=== PATIENT | female | born 1970 | race Caucasian/White ===

== ENCOUNTER → 2017-05-09 | Emergency (ER) | payer MEDICAID ==
[~2017-05-09] MED LIST: ALBU8.5H8 IH; IBUP-1986 PO
== END | disposition left against medical advice (07) ==
LOC: ER 14:52
DX: M79.643 Pain in unspecified hand (principal); Z53.21 Procedure and treatment not carried out due to patient leaving prior to being seen by health care provider

== ENCOUNTER → 2017-12-26 | Emergency (ER) | payer MEDICAID ==
[~2017-12-26] VITALS: Ht 162.6 cm; Wt 75.0 kg
[~2017-12-26] MED LIST changes: +ALBU18HF2 INH; +ATOR80TA PO; +ESCI5TAB PO; +GABA-532 PO; +GLIP5TAB13 PO; +INSU100I31; +LIRA0.6P2 SQ; +MESSAGE TO PHARMACY PO ONE; +METF500T PO; +PALI117D IM; +PALIPERIDONE PALMITATE IM SCH; +TIOT4MIS5 IH; +TRAZ-219 PO; +albuterol 2.5 MG/3 ML nebule NEB PRN; +dextrose 50%-water 50ml dispensing syringe IV PRN; +dextrose ORAL solution 15 GM/59 ML bottle PO PRN; +glipizide 5mg tablet PO SCH; +glucagon, human recombinant 1mg kit SUBCUT PRN; +metFORMIN 500mg tablet PO SCH; +paliperidone palmitate inj 234 MG/1.5 ML SYRINGE IM SCH
[2017-12-26 17:02] LABS: BASOPHILS % (AUTO) 0.4 % (0-1); EOSINOPHILS # (AUTO) 0.1 X10'3 (0-0.9); EOSINOPHILS % (AUTO) 1.7 % (0-6); HEMOGLOBIN 14.2 g/dl (12.0-16.0); LYMPHOCYTES # (AUTO) 2.3 X10'3 (1.1-4.8); LYMPHOCYTES % (AUTO) 42.7 % (21-51); MEAN CORPUSCULAR HGB CONC 33.9 % (33.0-36.5); MEAN CORPUSCULAR VOLUME 88.6 FL (78-98); MEAN PLATELET VOLUME 7.3 FL (7.4-10.4); MONOCYTES # (AUTO) 0.6 X10'3 (0-0.9); MONOCYTES % (AUTO) 10.4 % (2-12); NEUTROPHILS # (AUTO) 2.4 X10'3 (1.8-7.7); NEUTROPHILS % (AUTO) 44.8 % (42-75); PLATELET COUNT 255 X10'3 (140-440); RED BLOOD COUNT 4.74 X10'6 (4.20-5.60); RED CELL DISTRIBUTION WIDTH 13.9 % (11.5-14.5); WHITE BLOOD COUNT 5.3 X10'3 (4.5-11.0)
[2017-12-26 17:11] LABS: URINE HCG NEGATIVE (NEG)
[2017-12-26 17:14] LABS: ALANINE AMINOTRANSFERASE 70 U/L (12-78); ALBUMIN 3.7 G/DL (3.4-5.0); ALBUMIN/GLOBULIN RATIO 0.9 (1.1-1.5); ALKALINE PHOSPHATASE 86 IU/L (46-116); ANION GAP 10 (8-16); ASPARTATE AMINO TRANSFERASE 30 U/L (10-37); BILIRUBIN,TOTAL 0.2 MG/DL (0.1-1.0); BLOOD UREA NITROGEN 11 MG/DL (7-18); BUN/CREATININE RATIO 15.9 (6.6-38.0); CALCIUM 9.3 MG/DL (8.5-10.1); CHLORIDE 99 MMOL/L (99-107); CREATININE 0.69 MG/DL (0.40-0.90); ETHANOL < 0.010 GM/DL (0.0-0.010); GLUCOSE 134 MG/DL (70-104); SODIUM 139 MMOL/L (135-145); TOTAL CARBON DIOXIDE 30.2 MMOL/L (24-32); TOTAL PROTEIN 7.8 G/DL (6.4-8.2); eGFR > 90 ML/MIN
[2017-12-26 17:21] LABS: URINE AMPHETAMINE SCREEN NEGATIVE (Neg); URINE BARBITUATE SCREEN NEGATIVE (Neg); URINE BENZODIAZEPINES SCREEN NEGATIVE (Neg); URINE CANNABINOID SCREEN POSITIVE (Neg); URINE COCAINE SCREEN NEGATIVE (Neg); URINE METHADONE SCREEN NEGATIVE (Neg); URINE OPIATE SCREEN NEGATIVE (Neg); URINE PHENCYCLIDINE SCREEN NEGATIVE (Neg)
[2017-12-26] MEDS: ipratropium 0.5 MG/2.5ML nebule IH SCH (21:03)
[2017-12-26] MEDS: insulin glargine (Lantus) pen - multi-dose SQ SCH (21:55)
[2017-12-26] MEDS: gabapentin 300mg capsule PO SCH (21:58)
[2017-12-26] MEDS: traZODone 50mg tablet PO SCH (21:58)
[2017-12-27] MEDS: ipratropium 0.5 MG/2.5ML nebule IH SCH ×4 (04:22→21:18)
[2017-12-27] MEDS: Liraglutide (Victoza) 1.2 MG SQ SCH (08:00)
[2017-12-27] MEDS: atorvastatin 20mg tablet PO SCH (08:45)
[2017-12-27] MEDS: gabapentin 300mg capsule PO SCH ×3 (08:45→21:07)
[2017-12-27] MEDS: citalopram 20mg tablet PO SCH (08:45)
[2017-12-27] MEDS: metFORMIN 500mg tablet PO SCH (12:41)
[2017-12-27] MEDS: nicotine 21mg patch - 24 hr TD SCH (14:00)
[2017-12-27] MEDS: insulin Lispro (HumaLOG) vial - multi-dose SQ SCH (14:02)
[2017-12-27 20:37] LABS: CLARITY,URINE CLEAR (Clear); COLOR,URINE YELLOW (Yellow); GLUCOSE, URINE NEGATIVE (Neg); KETONES,URINE NEGATIVE (Neg); LEUKOCYTE ESTERASE ,URINE NEGATIVE (Neg); NITRITES, URINE NEGATIVE (Neg); OCCULT BLOOD,URINE NEGATIVE (Neg); PH,URINE 5.5 (4.8-8.0); PROTEIN,URINE NEGATIVE (Neg); UROBILINOGEN,URINE 0.2 E.U/dL (0.2-1.0)
[2017-12-27 20:42] LABS: UA COLLECTION TYPE CLN CATCH MIDSTREAM
[2017-12-27] MEDS: traZODone 50mg tablet PO SCH (21:08)
[2017-12-27] MEDS: insulin glargine (Lantus) pen - multi-dose SQ SCH (21:12)
[2017-12-28] MEDS: ipratropium 0.5 MG/2.5ML nebule IH SCH ×3 (02:00→13:57)
[2017-12-28 05:30] VITALS: BP 120/68
[2017-12-28] MEDS: Liraglutide (Victoza) 1.2 MG SQ SCH ×2 (08:00→13:33)
[2017-12-28] MEDS: gabapentin 300mg capsule PO SCH ×2 (08:55→12:46)
[2017-12-28] MEDS: citalopram 20mg tablet PO SCH (08:55)
[2017-12-28] MEDS: atorvastatin 20mg tablet PO SCH (08:56)
[2017-12-28] MEDS: nicotine 21mg patch - 24 hr TD SCH (08:56)
[2017-12-28] MEDS: insulin Lispro (HumaLOG) vial - multi-dose SQ SCH ×2 (09:18→13:25)
[2017-12-28] MEDS: metFORMIN 500mg tablet PO SCH (13:26)
== END | disposition home or self-care (01) ==
LOC: ER 16:35
DX: R45.851 Suicidal ideations (principal); E11.42 Type 2 diabetes mellitus with diabetic polyneuropathy; E78.00 Pure hypercholesterolemia, unspecified; G89.29 Other chronic pain; F31.9 Bipolar disorder, unspecified; F20.9 Schizophrenia, unspecified; Z56.0 Unemployment, unspecified; Z98.890 Other specified postprocedural states; Z88.0 Allergy status to penicillin; Z88.6 Allergy status to analgesic agent; Z79.899 Other long term (current) drug therapy; Z79.4 Long term (current) use of insulin
CPT/HCPCS: 36415; 80053; 80305; 80320; 81003; 81025; 82948; 84443; 85025; 94640; 94760; 96372; 99285; J1815

== ENCOUNTER 2018-11-12 13:57 | Day surgery (SDC) | payer MEDICAID ==
[2018-11-04 16:20] LABS: BASOPHILS % (AUTO) 0.6 % (0-1); EOSINOPHILS # (AUTO) 0.1 X10'3 (0-0.9); EOSINOPHILS % (AUTO) 1.7 % (0-6); LYMPHOCYTES # (AUTO) 2.5 X10'3 (1.1-4.8); LYMPHOCYTES % (AUTO) 46.1 % (21-51); MEAN CORPUSCULAR HEMOGLOBIN 30.1 PG (27.0-31.0); MEAN CORPUSCULAR HGB CONC 33.9 g/dL (33.0-36.5); MEAN CORPUSCULAR VOLUME 88.7 FL (78-98); MEAN PLATELET VOLUME 7.1 FL (7.4-10.4); MONOCYTES # (AUTO) 0.5 X10'3 (0-0.9); MONOCYTES % (AUTO) 9.8 % (2-12); NEUTROPHILS # (AUTO) 2.3 X10'3 (1.8-7.7); NEUTROPHILS % (AUTO) 41.8 % (42-75); PRE OP HEMATOCRIT 39.2 % (35.0-45.0); PRE OP HEMOGLOBIN 13.3 g/dL (12.0-16.0); PRE OP PLATELET COUNT 222 X10'3 (140-440); RED BLOOD COUNT 4.42 X10'6 (4.20-5.60); RED CELL DISTRIBUTION WIDTH 13.7 % (11.5-14.5)
[2018-11-04 16:44] LABS: ALBUMIN 3.6 G/DL (3.4-5.0); ALBUMIN/GLOBULIN RATIO 0.9 (1.1-1.5); ALKALINE PHOSPHATASE 103 IU/L (46-116); BLOOD UREA NITROGEN 11 MG/DL (7-18); BUN/CREATININE RATIO 17.5 (6.6-38.0); CALCIUM 9.6 MG/DL (8.5-10.1); CHLORIDE 106 MMOL/L (99-107); CREATININE 0.63 MG/DL (0.40-0.90); PRE OP ALT 31 U/L (30-65); PRE OP ANION GAP 9 (8-16); PRE OP AST 12 U/L (10-37); PRE OP BILIRUB, TOTAL 0.1 MG/DL (0.0-1.0); PRE OP GLUCOSE 128 MG/DL (70-104); PRE OP POTASSIUM 3.9 MMOL/L (3.4-5.1); PRE OP SODIUM 142 MMOL/L (135-145); TOTAL CARBON DIOXIDE 27.2 MMOL/L (24-32); TOTAL PROTEIN 7.4 G/DL (6.4-8.2); eGFR > 90 ML/MIN
[~2018-11-12] VITALS: Ht 162.6 cm; Wt 72.0 kg
[2018-11-12] VITALS (8 sets, daily range): BP systolic 85–118; BP diastolic 52–70
[~2018-11-12 13:57] MED LIST changes: -ALBU8.5H8 IH; -IBUP-1986 PO; -MESSAGE TO PHARMACY PO ONE; -PALIPERIDONE PALMITATE IM SCH; -albuterol 2.5 MG/3 ML nebule NEB PRN; -dextrose 50%-water 50ml dispensing syringe IV PRN; -dextrose ORAL solution 15 GM/59 ML bottle PO PRN; -glipizide 5mg tablet PO SCH; -glucagon, human recombinant 1mg kit SUBCUT PRN; -metFORMIN 500mg tablet PO SCH; -paliperidone palmitate inj 234 MG/1.5 ML SYRINGE IM SCH
[2018-11-12] MEDS ORDERED: levoFLOXACIN-Levaquin 750MG/D5 150 ML IV ONE (14:40)
[2018-11-12] MEDS ORDERED: albuterol 2.5 MG/3 ML nebule NEB ONE (15:00)
[2018-11-12] MEDS ORDERED: ringers solution, lacted 1,000 ML IV SCH ×2 (15:00→17:54)
[2018-11-12] MEDS ORDERED: famotidine 20mg tablet PO ONE (15:00)
--- NOTE | 2018-11-12 15:20 | NUR ---
(1435) BP 85/52. PT ASYMPTOMATIC. LR 500ML BOLUS GIVEN PER DR SALCIDO AT BEDSIDE. (1520) POST BOLUS BP 97/65. Addendum: 11/12/18 at 1605 by Maday Johnson RN Amended: Links added.
[2018-11-12] MEDS ORDERED: methylPREDNISolone sod succ 125mg/2ml vial ONE (15:53)
[2018-11-12] MEDS ORDERED: BUPIVAcaine/PF 2.5 mg/ml (0.25%) 30ml vial ONE (15:53)
[2018-11-12] MEDS ORDERED: fentaNYL/PF 50MCG/1 ML 2ML syringe ONE (17:00)
[2018-11-12] MEDS ORDERED: midazolam 2 mg/2 ml injection ONE (17:00)
[2018-11-12] MEDS ORDERED: LIDOcaine 0.5% (5mg/ml) 50ml vial ONE (17:00)
--- NOTE | 2018-11-12 17:50 | NUR ---
Received from OR via BED , accompanied by Anesthesiologist DR OGDEN and report given by Anesthesiolgist. PATIENT WAKING UP, NO S/S OF PAIN, V/S WNL, NEUROVASCULAR CHECKS INTACT. PIV 20G TO LUE , SCD ON, DRESSING SPLINT TO RIGHT WRIST CDI.
[2018-11-12] MEDS ORDERED: proCHLORperazine 10 MG/2 ml inj IV PRN (17:55)
[2018-11-12] MEDS ORDERED: morphine 4 MG/ML inj SYRINge IV PRN ×2 (17:55)
[2018-11-12] MEDS ORDERED: meperidine/PF 25mg/ml syringe IV PRN ×3 (17:55)
[2018-11-12] MEDS ORDERED: ondansetron/PF 4mg/2ml inj IV PRN (17:55)
--- NOTE | 2018-11-12 18:40 | NUR ---
PATIENT A&OX4, DENIES PAIN, V/S WNL, NEUROVASCULAR CHECKS INTACT. PIV 20G TO LUE D/C , SCD OFF, DRESSING TO RIGHT WRIST CDI. iCE AND ELEVATION TO RUE. I HAVE REVIEWED D/C INSTRUCTIONS WITH PATIENT AND FAMILY AND THEY HAVE VERBALIZED UNDERSTANDING. PATIENT D/C HOME WITH ALL BELONGS AND FAMILY GAVE TRANSPORT HOME
== END 2018-11-12 18:40 | disposition home or self-care (01) ==
LOC: PAS 13:57
PROVIDERS: ATTEND Orthopaedic Surgery
DX: G56.01 Carpal tunnel syndrome, right upper limb (principal); G56.21 Lesion of ulnar nerve, right upper limb; F17.210 Nicotine dependence, cigarettes, uncomplicated; J44.9 Chronic obstructive pulmonary disease, unspecified; E11.51 Type 2 diabetes mellitus with diabetic peripheral angiopathy without gangrene; F31.9 Bipolar disorder, unspecified; F41.9 Anxiety disorder, unspecified; E78.5 Hyperlipidemia, unspecified; E66.8 Other obesity; Z68.26 Body mass index [BMI] 26.0-26.9, adult; Z88.0 Allergy status to penicillin; Z88.8 Allergy status to other drugs, medicaments and biological substances; Z91.018 Allergy to other foods
CPT/HCPCS: 36415; 64719; 64721; 80053; 82948; 85025; 93005; 94640; 94760; A6222; J1956; J2001; J2250; J2930; J3010; J3370; J3490; A4215; A6449; A7000; J7120